=== PATIENT | female | born 1955 | race Caucasian/White ===

== ENCOUNTER → 2016-12-17 | Outpatient (CLI) | payer BC ==
[~2016-12-17] MED LIST: CALC-20 PO; LISI-461 PO; MAGN250T16 PO; MULT-506 PO; OMEP20CA9 PO; SIMV-151 PO; VTMD PO
[2016-12-17 09:35] LABS: BASO % 0.5 %; BASO ABS # 0.04 K/uL (0-0.2); COMPLETE YES; EOS % 2.3 %; HEMATOCRIT 42.6 % (37-47); IG% 0.1 %; LYMPH % 35.2 %; LYMPH ABS # 2.73 K/uL (1.2-3.4); MEAN CELL VOLUME 89.7 fL (80-100); MEAN CORPUSCULAR HEMOGLOBIN 30.5 pg (25-34); MEAN PLATELET VOLUME 10.7 fL (7.4-10.4); MONO % 5.5 %; NEUT % 56.4 %; PLATELET COUNT 275 K/uL (130-400); RED BLOOD COUNT 4.75 M/uL (4.2-5.4); WHITE BLOOD COUNT 7.75 K/uL (4.8-10.8)
[2016-12-17 09:58] LABS: AST/SGOT 18 U/L (15-37); BLOOD UREA NITROGEN 14 mg/dl (7-18); BUN/CREATININE RATIO 18.8 (10-20); CALCIUM 9.1 mg/dl (8.5-10.1); CARBON DIOXIDE 27 mmol/L (21-32); CHLORIDE 107 mmol/L (98-107); CREATININE 0.75 mg/dl (0.60-1.20); GLUCOSE 104 mg/dl (70-99); POTASSIUM 3.9 mmol/L (3.5-5.1); SODIUM 140 mmol/L (136-145)
[2016-12-17 10:09] LABS: ALT/SGPT 44 U/L (12-78); CHOLESTEROL 186 mg/dl (0-200); CHOLESTEROL/HDL RATIO 3.3; HDL CHOLESTEROL 56 mg/dl; LDL CHOLESTEROL CALCULATED 111 mg/dl; THYROID STIMULATING HORMONE 0.971 uIu/ml (0.300-4.500); TRIGLYCERIDES 93 mg/dl (0-150); VERY LOW DENSITY LIPOPROT CALC 19 mg/dl
== END | disposition home or self-care (01) ==
LOC: C.LAB1850 07:16
PROVIDERS: ATTEND Internal Medicine
DX: D64.9 Anemia, unspecified (principal); E78.5 Hyperlipidemia, unspecified; M81.0 Age-related osteoporosis without current pathological fracture; E55.9 Vitamin D deficiency, unspecified; E03.9 Hypothyroidism, unspecified

== ENCOUNTER → 2017-03-21 | Outpatient (CLI) | payer BC | END | disposition home or self-care (01) | LOC: C.PAPS 10:35 | PROVIDERS: ATTEND Obstetrics & Gynecology | DX: Z01.419 Encounter for gynecological examination (general) (routine) without abnormal findings (principal) ==

== ENCOUNTER → 2017-07-02 | Outpatient (CLI) | payer BC ==
[2017-07-02 09:51] LABS: ALT/SGPT 25 U/L (12-78); AST/SGOT 16 U/L (15-37); BLOOD UREA NITROGEN 15 mg/dl (7-18); CALCIUM 9.4 mg/dl (8.5-10.1); CARBON DIOXIDE 28 mmol/L (21-32); CHLORIDE 106 mmol/L (98-107); CREATININE 0.72 mg/dl (0.60-1.20); GLUCOSE 99 mg/dl (70-99); SODIUM 141 mmol/L (136-145)
[2017-07-02 10:01] LABS: CHOLESTEROL 201 mg/dl (0-200); CHOLESTEROL/HDL RATIO 2.9; HDL CHOLESTEROL 70 mg/dl; LDL CHOLESTEROL CALCULATED 110 mg/dl; TRIGLYCERIDES 103 mg/dl (0-150); VERY LOW DENSITY LIPOPROT CALC 21 mg/dl
== END | disposition home or self-care (01) ==
LOC: C.LAB1850 07:07
PROVIDERS: ATTEND Internal Medicine
DX: E78.5 Hyperlipidemia, unspecified (principal); E03.9 Hypothyroidism, unspecified; R73.9 Hyperglycemia, unspecified

== ENCOUNTER → 2017-10-16 | Outpatient (CLI) | payer BC ==
--- NOTE | 2017-10-16 15:08 | MAMMOGRAPHY REPORT ---
ULTRASOUND OF RIGHT BREAST: 10/16/2017 CLINICAL HISTORY: The patient has a history of right breast cancer status post right mastectomy. She reports that she has had a known seroma at the mastectomy bed which she has undergone repeated aspir ations for. She reports that since March the right mastectomy bed feels different; she feels twinges in the region and feels that the lateral aspect of the surgical bed may feel slightly larger. COMPARISON: Comparison is made to exams dated: 10/05/2014 mammogram, 10/05/2014 stereotactic biopsy, ultrasound, 09/16/2014 mammogram, 09/10/2014 mammogram, and 08/19/2013 mammogram - [facility]. TECHNIQUE: Real-time targeted ultrasound of the right breast was performed. FINDINGS: Real-time, high resolution targeted ultrasound was performed of the right mastectomy bed. 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 There is some poste rior acoustic shadowing posterior to the mass which makes evaluation of the deeper structures difficu lt on ultrasound. In the central aspect of the right surgical bed there are a few adjacent nodular h eterogeneously hypoechoic regions anterior to the seroma, one measuring 1.3 cm and the other measurin g 1.6 cm. The findings could represent postsurgical changes/fat necrosis. Given the nodular hypoech oic regions anteriorly and given the difficulty with complete visualization of the mastectomy bed on ultrasound, I would recommend breast MRI to fully evaluate the surgical bed. 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 No dular hypoechoic regions are seen in the central breast anterior to the seroma, which have a nonspeci fic appearance on ultrasound and could represent postsurgical changes/fat necrosis. Given the nodula r hypoechoic regions anteriorly and given the difficulty with complete visualization of the mastectom y bed on ultrasound due to the large seroma, I would recommend breast MRI to fully evaluate the surgi dunia bed. The results were discussed with the patient. Franci Lobo M.D. /:10/16/2017 14:44:39 Gospel Worker: Franci Lobo MD, [facility] letter sent: Addl Imaging 0 BI-RADS Code: ACR BI-RADS Category 0: Incomplete Evaluation: Need Additional Imaging Evaluation
== END | disposition home or self-care (01) ==
LOC: C.MAMM 14:03
PROVIDERS: ATTEND Physician Assistant
DX: R92.8 Other abnormal and inconclusive findings on diagnostic imaging of breast (principal); N63.10 Unspecified lump in the right breast, unspecified quadrant

== ENCOUNTER → 2017-10-23 | Outpatient (CLI) | payer BC ==
[2017-10-23 10:04] LABS: BLOOD UREA NITROGEN 15 mg/dl (7-18); CREATININE 0.63 mg/dl (0.60-1.20)
== END | disposition home or self-care (01) ==
LOC: C.LAB1850 08:47
PROVIDERS: ATTEND Physician Assistant
DX: R92.8 Other abnormal and inconclusive findings on diagnostic imaging of breast (principal); N63.0 Unspecified lump in unspecified breast

== ENCOUNTER → 2017-10-28 | Outpatient (CLI) | payer BC ==
[~2017-10-28] MED LIST changes: +GADAVIST IV PRN
--- NOTE | 2017-10-29 14:41 | MAMMOGRAPHY REPORT ---
BREAST MRI OF BOTH BREASTS : 10/28/2017 CLINICAL HISTORY: History of right breast cancer 2015 status post bilateral mastectomies. She was se en recently for an ultrasound exam. At that time she reported a known seroma at the mastectomy bed w hich she has undergone repeated aspirations for. She reports that since March the right mastectomy be d feels different; she feels twinges in the region and feels that the lateral aspect of the surgical bed may feel slightly larger. COMPARISON: Comparison is made to exams dated: 10/16/2017 ultrasound, 10/05/2014 mammogram, 10/05/2014 st ereotactic biopsy, 09/16/2014 ultrasound, 09/16/2014 mammogram, and 09/10/2014 mammogram - [facility]. Technique: The patient was placed prone in a dedicated breast imaging coil. Precontrast axial T1-radames ghted, axial T2-weighted fat saturation, and axial T1-weighted fat saturation images were obtained. After the administration of 6.5 mL of Gadavist IV contrast, sequential T1-weighted fat saturation floresita ges were obtained. Subtraction images were obtained of the dynamic contrast enhanced sequences, and 3-D reformations were performed. The [employer] software was used for kinetic analysis. Findings: There are post surgical changes from bilateral mastectomies. At the right mastectomy bed there is an oval circumscribed 3.3 x 5.5 x 6.6 cm mass which is heterogeneously T2 hyperintense as well as T1 hy perintense and does not demonstrate any postcontrast enhancement (series 4 image 31, series 6 image 1 01). The mass is benign and compatible with a postsurgical fluid collection such as a hematoma/serom a. The remainder of the right mastectomy bed as well as the left mastectomy bed demonstrate no suspi cious enhancing masses or areas of abnormal non-mass enhancement. Previously described hypoechoic ma sses anterior to the fluid collection on ultrasound follow fat intensity on MRI and demonstrate no en hancement and are benign and compatible with normal fat lobules versus fat necrosis. There is mild d iffuse thickening of the skin at the right mastectomy bed, without any abnormal enhancement. There is no evidence of axillary adenopathy. The chest wall structures are negative. Visualized por tions of the extramammary soft tissues are grossly unremarkable. IMPRESSION: ACR BI-RADS CATEGORY 2: BENIGN 1. No MRI evidence of malignancy at bilateral mastectomy beds. 2. Circumscribed 6.6 cm mass at the right mastectomy bed does not enhance on MRI and is benign and c ompatible with a postsurgical seroma/hematoma. Franci Lobo M.D. ah/:10/28/2017 16:53:27 Batcher Operator: soldering technician, [facility] letter sent: Normal 1/2 BI-RADS Code: ACR BI-RADS Category 2: Benign
== END | disposition home or self-care (01) ==
LOC: C.MRI 14:03
PROVIDERS: ATTEND Physician Assistant
DX: N63.10 Unspecified lump in the right breast, unspecified quadrant (principal); R92.8 Other abnormal and inconclusive findings on diagnostic imaging of breast

== ENCOUNTER → 2017-12-31 | Outpatient (CLI) | payer BC ==
[~2017-12-31] MED LIST changes: -GADAVIST IV PRN
[2017-12-31 09:33] LABS: BASO % 0.3 %; BASO ABS # 0.03 K/uL (0-0.2); EOS % 2.8 %; EOS ABS # 0.25 K/uL (0-0.5); HEMATOCRIT 44.3 % (37-47); HEMOGLOBIN 15.3 g/dL (12.0-16.0); IG# 0.02 K/uL (0.00-0.02); LYMPH % 30.4 %; LYMPH ABS # 2.73 K/uL (1.2-3.4); MEAN CELL VOLUME 90.8 fL (80-100); MEAN CORPUSCULAR HEMOGLOBIN 31.4 pg (25-34); MEAN CORPUSCULAR HGB CONC 34.5 g/dl (32-36); MEAN PLATELET VOLUME 10.6 fL (7.4-10.4); MONO % 7.5 %; MONO ABS # 0.67 K/uL (0.11-0.59); NEUT % 58.8 %; NEUT ABS # 5.27 K/uL (1.4-6.5); PLATELET COUNT 261 K/uL (130-400); RED CELL DISTRIBUTION WIDTH CV 13.1 % (11.5-14.5); RED CELL DISTRIBUTION WIDTH SD 43.4 fL (36.4-46.3); WHITE BLOOD COUNT 8.97 K/uL (4.8-10.8)
[2017-12-31 09:50] LABS: ALBUMIN 3.8 gm/dl (3.4-5.0); ALT/SGPT 31 U/L (12-78); AST/SGOT 17 U/L (15-37); BLOOD UREA NITROGEN 23 mg/dl (7-18); CALCIUM 9.7 mg/dl (8.5-10.1); CARBON DIOXIDE 28 mmol/L (21-32); CREATININE 0.66 mg/dl (0.60-1.20); GLUCOSE 100 mg/dl (70-99); SODIUM 138 mmol/L (136-145)
[2017-12-31 09:52] LABS: ALKALINE PHOSPHATASE 86 U/L (45-117); TOTAL PROTEIN 7.3 gm/dl (6.4-8.2)
== END | disposition home or self-care (01) ==
LOC: C.LAB1850 06:58
PROVIDERS: ATTEND Internal Medicine
DX: Z00.00 Encounter for general adult medical examination without abnormal findings (principal); Z11.59 Encounter for screening for other viral diseases; E03.9 Hypothyroidism, unspecified; E87.5 Hyperkalemia; E55.9 Vitamin D deficiency, unspecified; C50.919 Malignant neoplasm of unspecified site of unspecified female breast